=== PATIENT | female | born 1955 | race Caucasian/White ===

== ENCOUNTER 2019-01-11 14:34 | Inpatient (IN) ==
[2019-01-11] MEDS ORDERED: ENOXAPARIN 40 MG/0.4 ML SYRINGE ONE (15:05)
[2019-01-11] MEDS ORDERED: dilTIAZem Drip 125 MG/125 ML PREMIX IV ONE (15:05)
[2019-01-11] MEDS ORDERED: ASPIRIN 325 MG TABLET ONE (15:05)
[2019-01-11] MEDS ORDERED: ENOXAPARIN 40 MG/0.4 ML SYRINGE SUBCUT STA (15:14)
[2019-01-11] MEDS ORDERED: DILTIAZEM 50 MG/10 ML VIAL IV STA (15:14)
[2019-01-11] MEDS ORDERED: ASPIRIN 325 MG TABLET PO STA (15:14)
[2019-01-11] MEDS: dilTIAZem Drip 125 MG/125 ML PREMIX IV SCH (15:16)
[2019-01-11] MEDS ORDERED: SODIUM CHLORIDE 0.9% 500 ML IV STA (15:22)
[2019-01-11 15:29] LABS: Basophils # 0.1 10*3/uL (0.0-0.2); Basophils % 0.6 % (0.0-0.8); Eosinophils # 0.1 10*3/uL (0.0-0.87); Eosinophils % 1.2 % (0.00-10.9); Hematocrit 42.7 VOL% (35.7-47.0); Immature Granulocytes % 0.5 %; Immature Granulocytes Absolute 0.05 #; Lymphocytes # 2.9 10*3/uL (1.4-4.0); Lymphocytes % 26.4 % (21.3-54.2); Mean Corpuscular HGB Conc 32.8 GM/DL (32-36); Mean Corpuscular Volume 92.4 FL (87-102); Monocytes % 8.2 % (1.7-12.7); Neutrophils % 63.1 % (38.7-73.9); Platelet Count 286 T/CUMM (130-400); Red Blood Count 4.62 MC/CUMM (3.8-5.5); Red Cell Distribution Width 14.3 % (9.3-17.3); White Blood Count 10.9 T/CUMM (4-12)
[2019-01-11 15:35] LABS: PT Patient Result 10.5 SECS (9.6-12.2)
[2019-01-11 15:56] LABS: Alanine Aminotransferase 16 U/L (13-56); Albumin 3.5 G/DL (3.4-5.0); Alkaline Phosphatase 94 U/L (45-117); Aspartate Amino Transferase 15 U/L (0-37); Bilirubin,Total < 0.39 MG/DL (0.2-1.0); Blood Urea Nitrogen 5 MG/DL (7-18); Calcium 8.8 MG/DL (8.5-10.1); Estimated Glom Filtration Rate 82 ML/MIN; Glucose 90 MG/DL (74-106); Osmolality,Calculated 271.7 MOS/KG (273-304); Total Protein 6.9 G/DL (6.4-8.3)
[2019-01-11 16:13] LABS: Apearance,Urine CLEAR (Clear); Bacteria,Urine Occasional /HPF (Few); Bilirubin,Urine Negative (Negative); Blood, Urine Small mg/dL (Negative); Glucose,Urine (UA) Negative (Negative); Ketones,Urine Negative (Negative); Nitrite,Urine Negative (Negative); Protein,Urine Negative; RBC,Urine <1 /HPF (0-4); Squamous Epithelial Cell,Urine Occasional /HPF (0-10); Urine Color Colorless (Yellow); Urine Specific Gravity 1.002 (1.001-1.035); Urine Urobilinogen < 2.0 EU/DL (0.2-1.0); WBC,Urine <1 /HPF (0-6)
[2019-01-11] MEDS ORDERED: MAGNESIUM SULF RIDER 2 GM in PREMIX 1 EACH IV STA (16:27)
[2019-01-11 16:35] LABS: Barbiturates Screen,Urine Negative (Negative); Benzodiazepines Screen,Urine Negative (Negative); Cannabinoid Screen,Urine Negative (Negative); Opiate Screen,Urine Positive (Negative); Phencyclidine Screen,Urine Negative (Negative)
[2019-01-11] MEDS ORDERED: ACETAMINOPHEN 325 MG TABLET PO PRN (16:59)
[2019-01-11] MEDS ORDERED: ONDANSETRON 4 MG/2 ML VIAL IV PRN (16:59)
[2019-01-11] MEDS ORDERED: amLODIPine 10 MG TABLET PO SCH (21:00)
[2019-01-11] MEDS: DILTIAZEM 30 MG TABLET PO SCH (21:57)
[2019-01-11] MEDS: APIXABAN 5 MG TABLET PO SCH (21:58)
[2019-01-11] MEDS: oxyCODONE/ACETAMINOPHEN 5-325 MG TABLET PO SCH (21:58)
[2019-01-11] MEDS: FERROUS SULFATE 325 MG TABLET PO SCH (21:58)
[2019-01-11] MEDS: LISINOPRIL 20 MG TABLET PO SCH (21:58)
[2019-01-11] MEDS: traZODone 50 MG TABLET PO SCH (22:03)
[2019-01-12] MEDS: DILTIAZEM 30 MG TABLET PO SCH ×2 (04:03→08:39)
[2019-01-12 04:53] LABS: Basophils # 0.1 10*3/uL (0.0-0.2); Basophils % 0.7 % (0.0-0.8); Eosinophils # 0.3 10*3/uL (0.0-0.87); Hematocrit 38.9 VOL% (35.7-47.0); Hemoglobin 12.3 GM/DL (12.0-16.0); Immature Granulocytes % 0.3 %; Immature Granulocytes Absolute 0.02 #; Lymphocytes # 2.8 10*3/uL (1.4-4.0); Lymphocytes % 40.1 % (21.3-54.2); Mean Corpuscular HGB Conc 31.6 GM/DL (32-36); Mean Corpuscular Volume 93.3 FL (87-102); Mean Platelet Volume 10.4 FL (9.6-12.0); Monocytes % 10.2 % (1.7-12.7); Neutrophils % 44.7 % (38.7-73.9); Platelet Count 243 T/CUMM (130-400); Red Blood Count 4.17 MC/CUMM (3.8-5.5); Red Cell Distribution Width 14.3 % (9.3-17.3)
[2019-01-12 05:09] LABS: Calcium 8.1 MG/DL (8.5-10.1); Osmolality,Calculated 282.8 MOS/KG (273-304)
[2019-01-12] MEDS: PARoxetine 20 MG TABLET PO SCH (08:39)
[2019-01-12] MEDS: PANTOPRAZOLE 40 MG TABLET PO SCH (08:39)
[2019-01-12] MEDS: MORPHINE ER 30 MG TABLET PO SCH (08:39)
[2019-01-12] MEDS: APIXABAN 5 MG TABLET PO SCH ×2 (08:39→20:05)
[2019-01-12] MEDS: oxyCODONE/ACETAMINOPHEN 5-325 MG TABLET PO SCH ×2 (08:39→20:04)
[2019-01-12] MEDS: FERROUS SULFATE 325 MG TABLET PO SCH ×2 (08:39→20:05)
[2019-01-12] MEDS: NICOTINE 21 MG/24 HR PATCH TRANSDERM SCH (08:40)
[2019-01-12] MEDS ORDERED: MAGNESIUM SULF RIDER 2 GM in PREMIX 1 EACH IV ONE ×2 (10:44→14:13)
[2019-01-12] MEDS ORDERED: POTASSIUM CHLORIDE 20 MEQ TABLET PO ONE (10:44)
[2019-01-12] MEDS: DILTIAZEM CD 120 MG CAPSULE PO SCH (15:27)
[2019-01-12] MEDS: MAGNESIUM CHLORIDE 64 MG TABLET PO SCH ×2 (15:28→20:05)
[2019-01-12] MEDS: ASCORBIC ACID 500 MG TABLET PO SCH ×2 (15:28→20:05)
[2019-01-12] MEDS: POTASSIUM CHLORIDE 20 MEQ TABLET PO SCH ×2 (15:28→20:09)
[2019-01-12] MEDS: traZODone 50 MG TABLET PO SCH (20:04)
[2019-01-12] MEDS: LISINOPRIL 20 MG TABLET PO SCH (20:05)
[2019-01-13 07:59] LABS: Basophils # 0.1 10*3/uL (0.0-0.2); Basophils % 0.7 % (0.0-0.8); Eosinophils # 0.2 10*3/uL (0.0-0.87); Eosinophils % 3.6 % (0.00-10.9); Hematocrit 43.3 VOL% (35.7-47.0); Hemoglobin 13.8 GM/DL (12.0-16.0); Immature Granulocytes % 0.3 %; Immature Granulocytes Absolute 0.02 #; Lymphocytes # 2.1 10*3/uL (1.4-4.0); Lymphocytes % 31.8 % (21.3-54.2); Mean Corpuscular HGB Conc 31.9 GM/DL (32-36); Mean Corpuscular Volume 93.9 FL (87-102); Mean Platelet Volume 10.6 FL (9.6-12.0); Monocytes % 9.8 % (1.7-12.7); Neutrophils % 53.8 % (38.7-73.9); Platelet Count 273 T/CUMM (130-400); Red Blood Count 4.61 MC/CUMM (3.8-5.5); Red Cell Distribution Width 14.3 % (9.3-17.3); White Blood Count 6.7 T/CUMM (4-12)
[2019-01-13] MEDS: dilTIAZem Drip 125 MG/125 ML PREMIX IV SCH ×2 (08:06→15:17)
[2019-01-13 08:24] LABS: Calcium 8.9 MG/DL (8.5-10.1); Osmolality,Calculated 281.8 MOS/KG (273-304)
[2019-01-13] MEDS: NICOTINE 21 MG/24 HR PATCH TRANSDERM SCH (08:51)
[2019-01-13] MEDS: ASCORBIC ACID 500 MG TABLET PO SCH ×2 (08:52→21:20)
[2019-01-13] MEDS: MORPHINE ER 30 MG TABLET PO SCH (08:52)
[2019-01-13] MEDS: MAGNESIUM CHLORIDE 64 MG TABLET PO SCH ×2 (08:52→21:19)
[2019-01-13] MEDS: oxyCODONE/ACETAMINOPHEN 5-325 MG TABLET PO SCH (08:52)
[2019-01-13] MEDS: FERROUS SULFATE 325 MG TABLET PO SCH ×2 (08:53→21:20)
[2019-01-13] MEDS: DILTIAZEM CD 120 MG CAPSULE PO SCH (08:53)
[2019-01-13] MEDS: APIXABAN 5 MG TABLET PO SCH ×2 (08:53→21:20)
[2019-01-13] MEDS: POTASSIUM CHLORIDE 20 MEQ TABLET PO SCH ×2 (08:53→21:20)
[2019-01-13] MEDS: PANTOPRAZOLE 40 MG TABLET PO SCH (08:54)
[2019-01-13] MEDS: PARoxetine 20 MG TABLET PO SCH (08:54)
[2019-01-13] MEDS ORDERED: DILTIAZEM CD 120 MG CAPSULE PO SCH (09:15)
[2019-01-13] MEDS ORDERED: DILTIAZEM CD 120 MG CAPSULE PO ONE (09:41)
[2019-01-13] MEDS ORDERED: oxyCODONE/ACETAMINOPHEN 5-325 MG TABLET PO PRN ×2 (11:24→12:27)
[2019-01-13] MEDS: traZODone 50 MG TABLET PO SCH (21:19)
[2019-01-13] MEDS: LISINOPRIL 20 MG TABLET PO SCH (21:20)
[2019-01-14 08:41] VITALS: BP 145/63
[2019-01-14] MEDS ORDERED: DILTIAZEM CD 240 MG CAPSULE PO SCH (09:00)
[2019-01-14] MEDS: MAGNESIUM CHLORIDE 64 MG TABLET PO SCH (10:00)
[2019-01-14] MEDS: APIXABAN 5 MG TABLET PO SCH (10:00)
[2019-01-14] MEDS: FERROUS SULFATE 325 MG TABLET PO SCH (10:00)
[2019-01-14] MEDS: POTASSIUM CHLORIDE 20 MEQ TABLET PO SCH (10:00)
[2019-01-14] MEDS: ASCORBIC ACID 500 MG TABLET PO SCH (10:00)
[2019-01-14] MEDS: NICOTINE 21 MG/24 HR PATCH TRANSDERM SCH (10:00)
[2019-01-14] MEDS: PANTOPRAZOLE 40 MG TABLET PO SCH (10:00)
[2019-01-14] MEDS: MORPHINE ER 30 MG TABLET PO SCH (10:01)
[2019-01-14] MEDS: PARoxetine 20 MG TABLET PO SCH (10:01)
== END 2019-01-14 10:57 | disposition home or self-care (01) | DRG 201 ==
LOC: N.EDINP 14:34 → N.ED 14:34 → N.EDINP 18:23 → N.TELEN 18:40
PROVIDERS: ADMIT Internal Medicine Geriatric Medicine; ATTEND Internal Medicine Geriatric Medicine